=== PATIENT | female | born 1990 | race Caucasian/White ===

== ENCOUNTER 2019-09-03 14:42 | Emergency (ER) | payer SELFPAY ==
[~2019-09-03] VITALS: Ht 185.4 cm; Wt 68.0 kg
[2019-09-03] MEDS ORDERED: SODIUM CHLORIDE 0.9% 500 ML IV ONE (15:15)
[2019-09-03] MEDS ORDERED: SODIUM CHLORIDE 0.9% 1,000 ML IV ONE (15:15)
[2019-09-03] MEDS ORDERED: INSULIN REGULAR (HUMULIN R) UD 100 UNITS/ML SYR IV ONE ×2 (15:30→18:45)
[2019-09-03 15:45] LABS: CHLORIDE 95 mEq/L (98-107)
[2019-09-03] MEDS ORDERED: INSULIN REGULAR (HUMULIN R) 300UNITS/3ML IV NR (15:45)
[2019-09-03] MEDS ORDERED: INSULIN REGULAR (HUMULIN R) 300UNITS/3ML IV ONE (19:00)
[2019-09-04 00:16] VITALS: BP 110/73
== END 2019-09-04 00:20 | disposition home or self-care (01) ==
LOC: ER 14:42
DX: E10.65 Type 1 diabetes mellitus with hyperglycemia (principal); E03.9 Hypothyroidism, unspecified
CPT/HCPCS: 36415; 80048; 82962; 96361; 96374; 96376; 99283; J1815; J7030; J7040; Z7610